=== PATIENT | male | born 1980 ===

== ENCOUNTER → 2016-07-11 | Day surgery (SDC) | payer MEDICAID, OTHER ==
[~2016-07-11] MED LIST: Acetaminophen TAB* 325 MG ONE; Acetaminophen TAB* 325 MG PO SCH; Betamethasone INJ* 6 MG/ML 5 ML VIAL (30 MG) ONE; Buffered Lidocaine 1% SYR 3ML* 3 ML/SYR SYRINGE INTRADERM ONE; Buffered Lidocaine 1% SYR 3ML* 3 ML/SYR SYRINGE ONE; Bupivacaine 0.25% SDV* 30 ML ONE; Clindamycin 900 MG IVPREMIX(* 900 MG/50 ML SDV IV ONE; DiMENhydriNATE IV* 50 MG/ML VIAL IV PUSH PRN; Famotidine IV* 10 MG/ML 2 ML (20 mg) ONE; HYDROcodone/ACETAMIN 5-325 MG* 1 TAB ONE; HYDROcodone/ACETAMIN 5-325 MG* 1 TAB PO PRN; Insulin REGULAR(*) 1 UNITS UNIT ONE; Insulin REGULAR(*) 1 UNITS UNIT SUBCUT ONE; Ketorolac INJ* 30 MG/ML 1 ML VIAL ONE; Lidocaine 1% MPF* 2 ML VIAL ONE; Lidocaine 2% PF * 5 ML VIAL ONE; Midazolam* 1 MG/ML 2 ML VIAL (2 MG) ONE; Ondansetron INJ* 2 MG/ML VIAL IV PRN; Propofol* 10 MG/ML 20 ML BTL IV PUSH ONE; fentaNYL* 50 MCG/ML 2 ML VIAL (100 MCG VIAL) ONE
[2016-07-11 12:29] VITALS: BP 128/86
--- NOTE | 2016-07-12 02:00 | OP ---
DATE OF OPERATION: 07/11/16 - [facility] DATE OF : 76 SURGEON: Mc Le MD FLIGHT RADIO OFFICER: STEFANIA Adames ANESTHESIOLOGIST: Dr. Henriquez. ANESTHESIA: Local MAC. PRE-OP DIAGNOSES: 1. Left carpal tunnel syndrome. 2. Left middle trigger finger. 3. Left index trigger finger. 4. Right middle trigger finger. 5. Right small trigger finger. POST-OP DIAGNOSES: 1. Left carpal tunnel syndrome. 2. Left middle trigger finger. 3. Left index trigger finger. 4. Right middle trigger finger. 5. Right small trigger finger. OPERATIVE PROCEDURE: 1. Left open carpal tunnel release. 2. Left middle trigger finger A1 osvaldo release. 3. Left index trigger finger A1 osvaldo release. 4. Right middle trigger finger steroid injection. 5. Right small trigger finger steroid injection. INDICATIONS: Doyle is a 35-year-old male. He had a few trigger fingers release. He presented to the office with carpal tunnel syndrome in left middle and index finger, trigger fingers and some trigger fingers on the right as well. We talked about risks and benefits and ultimately reelected to proceed with release of the left carpal tunnel and trigger fingers and injections on the right side. ESTIMATED BLOOD LOSS: 5 mL. COMPLICATIONS: None. FINDINGS: As expected. DESCRIPTION OF PROCEDURE: Doyle was seen in the preoperative holding area and the correct site and side were marked. We came back to the operating room, where he got a little bit of anesthesia and then I injected the operative area with 0.25% Marcaine without epinephrine. This was done on the left side, the operative site, after we have had a formal time-out. I then went over to the right side and consistent the skin overlying the right middle finger A1 osvaldo with alcohol. I then used a 25-gauge needle to inject 1 mL of 1% plain lidocaine and 60 mg of betamethasone. He tolerated this well. I then went ahead and cleansed the skin over the right small finger A1 osvaldo area and I then introduced a 25-gauge needle and injected again 1 mL of 1% plain lidocaine and 6 mg of betamethasone overlying the A1 osvaldo of that finger. I then removed the needle and we then wiped the hand down and we then went ahead prepped the left upper extremity in a standard fashion. We then prepped and draped the left upper extremity in standard fashion and then we had a formal time-out. I went ahead and made a longitudinal incision in a standard location for carpal tunnel release. This was about 2 or 3 cm in length. Dissection was carried down through the skin, subcutaneous tissue, palmar fascia, to expose the transverse carpal ligament. A subcutaneous tunnel was created superficial to the distal end of the brachial fascia just ulnar to the palmaris longus tendon. I then went ahead and returned distally and used the knife to begin the release of the transverse carpal ligament. I went ahead and released the ligament just off the radial aspect of the the hook of the hamate. This was continued sharply with the knife proximally until I got to the level of the volar wrist flexion crease. At this point, I went ahead and placed a Hollie retractor in the subcutaneous tunnel that I created and retracted the skin and subcutaneous tissue superficially. Under direct visualization, I then used my tenotomy scissors to complete the release of the rest of the transverse carpal ligament and the distal end of the brachial fascia to the level of about 4 to 5 cm proximal to the volar wrist flexion crease. I then went ahead and checked the decompression distally and proximally. Everything looked very nice and decompressed. I then went ahead and made a 1 cm longitudinal incision in line with the tendon sheath of the left index finger. I used the tenotomy scissors and bluntly dissected off the soft tissue off of the flexor tendon sheath. Ragnell retractors were placed to directly visualize the flexor tendon sheath. I then used my 15 blade to longitudinally incise the A1 osvaldo. I used my tenotomy scissors then to complete the release a little bit proximally and a little bit distally. I checked the release and everything looked very good. I then went ahead and made another 1 cm longitudinal incision over the A1 osvaldo of the left middle finger. Dissection was carried down again with the tenotomy scissors bluntly. The Ragnell retractors were placed and the A1 osvaldo was incised longitudinally with the 15 blade. Again, I used the tenotomy scissors to complete the release a little bit proximally and a little bit distally. Again, everything was checked and everything looked very nice. At this point, we went ahead and irrigated all the wounds. All the wounds were then closed with some 4-0 nylon suture. Xeroform, 4x4s, some sterile Webril, and an Javi were applied. The tourniquet was then deflated. It had been inflated prior to making the first skin incision. Total tourniquet time was 27 minutes. He was then awoken back up and taken to recovery room in stable condition. [id number]/[facility] #: [id number] CHELSY
== END | disposition home or self-care (01) ==
LOC: OREAST 08:50
PROVIDERS: ATTEND Orthopaedic Surgery Hand Surgery
DX: G56.02 Carpal tunnel syndrome, left upper limb (principal); M65.332 Trigger finger, left middle finger; M65.322 Trigger finger, left index finger; M65.351 Trigger finger, right little finger; M65.331 Trigger finger, right middle finger; E11.8 Type 2 diabetes mellitus with unspecified complications; Z79.4 Long term (current) use of insulin; I10 Essential (primary) hypertension; G35 Multiple sclerosis
CPT/HCPCS: A9270-GY; J0702; J1885; J2250; J2704; J3010

== ENCOUNTER → 2016-08-25 08:55 | Day surgery (SDC) | payer MEDICAID, OTHER ==
[~2016-08-25 08:55] MED LIST changes: -Acetaminophen TAB* 325 MG PO SCH; -Betamethasone INJ* 6 MG/ML 5 ML VIAL (30 MG) ONE; -Buffered Lidocaine 1% SYR 3ML* 3 ML/SYR SYRINGE INTRADERM ONE; -Buffered Lidocaine 1% SYR 3ML* 3 ML/SYR SYRINGE ONE; -Bupivacaine 0.25% SDV* 30 ML ONE; -Clindamycin 900 MG IVPREMIX(* 900 MG/50 ML SDV IV ONE; -DiMENhydriNATE IV* 50 MG/ML VIAL IV PUSH PRN; -Famotidine IV* 10 MG/ML 2 ML (20 mg) ONE; -HYDROcodone/ACETAMIN 5-325 MG* 1 TAB ONE; -HYDROcodone/ACETAMIN 5-325 MG* 1 TAB PO PRN; -Insulin REGULAR(*) 1 UNITS UNIT ONE; -Insulin REGULAR(*) 1 UNITS UNIT SUBCUT ONE; -Ketorolac INJ* 30 MG/ML 1 ML VIAL ONE; +Lidocain 1% EPI 1:100,000 * 30 ML MDV ONE; -Lidocaine 1% MPF* 2 ML VIAL ONE; -Lidocaine 2% PF * 5 ML VIAL ONE; -Midazolam* 1 MG/ML 2 ML VIAL (2 MG) ONE; -Ondansetron INJ* 2 MG/ML VIAL IV PRN; -Propofol* 10 MG/ML 20 ML BTL IV PUSH ONE; +Sodium Bicarbonate 8.4% SYR* 10 ML SYRINGE ONE; -fentaNYL* 50 MCG/ML 2 ML VIAL (100 MCG VIAL) ONE; +traMADol TAB* 50 MG ONE
[2016-08-25 11:58] VITALS: BP 133/80
--- NOTE | 2016-09-01 09:55 | OP ---
OPERATIVE REPORT: DATE OF OPERATION: 08/25/16 DATE OF : 76 SURGEON: Mc Le MD NUTRITION SERVICES ASSISTANT: STEFANIA Izaguirre ANESTHESIOLOGIST: None. ANESTHESIA: Local only with 1% lidocaine with epinephrine and bicarbonate. PRE-OP DIAGNOSIS: Persistent left middle finger trigger finger status post left middle finger ana maria er finger release. POST-OP DIAGNOSIS: Persistent left middle finger trigger finger status post left middle finger trig barbara finger release. OPERATIVE PROCEDURE: 1. Release of A1 osvaldo, left middle finger. 2. Excision of one slip of the flexor digitorum superficialis tendon, left middle finger. INDICATIONS: Doyle is a patient in whom I had previously done a carpal tunnel release on the left side as well as did left middle and index finger trigger finger releases at the same sitting. Ever von healed up nicely except for the left middle finger continues to persistently trigger. I had seen him in the office and it was triggering pretty much every time he flexed the finger down. We h ad talked about treatment options for this and he has elected to undergo treatment of the left middl e trigger finger under local only anesthesia so that we could better evaluate and make sure that we are fixing the problem. We had talked about risks and benefits. ESTIMATED BLOOD LOSS: 5 mL. COMPLICATIONS: None. FINDINGS: Persistent triggering left middle finger despite full and complete release of the A1 pull ey and just the most proximal part of the A2 osvaldo and lysis of the tendon down into the level of t he mid palm. DESCRIPTION OF PROCEDURE: Doyle was seen in the preoperative holding area and the correct site, s eliseo, and procedure were identified. I anesthetized the operative area. We waited and then came eb k to the operating room, where the arm was prepped and draped in the usual fashion and a formal time -out was performed. I began by incorporating my prior longitudinal 1-cm incision into a more extensile incision to the l evel of the MP joint flexion crease and then extending it proximally in Pili-type fashion as well. The entire A1 osvaldo area including the healing that had occurred was visualized. The digital ner ves were protected. I longitudinally incised the A1 osvaldo again and visualized the tendons. I the n used the tenotomy scissors to complete the release distally and proximally. Proximally, I lysed t he tendons all the way back to the level of the mid palm. I released the entirety of the A1 osvaldo and released probably the proximal 20% of the A2 osvaldo as well with a tenotomy scissors. I then se parated individually the FDS and FDP tendons. There were no adhesions between the two tendons. At this point, I had Doyle make a fist and open up the hand. The left middle finger continued to tracy ntly trigger. I looked at the release again and I released a little bit more and I had him make a f ist and open up and the left middle finger continued to persistently trigger. At this point, I made an incision in Pili-type fashion exposing the A3 osvaldo. A distally based L-type flap was raised and the flexor tendons and A3 osvaldo were visualized. I ended up having to connect the two incisio ns to get adequate exposure. The A2 osvaldo was identified and preserved throughout the entirety of the case. The single slip of the FDS was identified laterally and deep to the FDP tendon. Camper's chiasm was divided longitudinally with the tenotomy scissors to separate the 2 slip of the FDS. I then came back into my proximal incision and tapered off and released the slip of the FDS tendon. Th is was then pulled and delivered into the distal wound and out of the flexor tendon sheath. I used a [place] blade to transect this at the level of the middle phalanx to transect this smoothly just of f the bone at the level of the middle phalanx. Great care was taken to preserve the other slip of t he FDS tendon. I then irrigated out the wound. I again had Doyle make a fist and there was absol utely no triggering. I had to make many more fists and do everything he could possibly do to try to induce any triggering. I could not induce any. I therefore irrigated out the wounds. The skin wa s closed with some 5-0 nylon suture. The wound was dressed with Xeroform, 4x4s, little bit of loose Gabriel, and Coban dressing was applied very loosely. He was then taken to the recovery room in stab le condition. POSTOPERATIVE PLAN: I explained to Doyle that he needs to start moving the finger right away to p revent any flexor tendon adhesions from developing. I will see him back in the office in about a we ek and half. [id number]/[facility] #: [id number]
== END | disposition home or self-care (01) ==
LOC: OREAST 08:55
PROVIDERS: ATTEND Orthopaedic Surgery Hand Surgery
DX: M65.332 Trigger finger, left middle finger (principal); M65.88 Other synovitis and tenosynovitis, other site; Z79.4 Long term (current) use of insulin; Z88.0 Allergy status to penicillin
CPT/HCPCS: 88304; A9270-GY